=== PATIENT | female | born 1985 | race Caucasian/White ===

== ENCOUNTER 2021-11-04 23:00 | Emergency (ER) | payer OTHER ==
[~2021-11-04] VITALS: Ht 175.3 cm; Wt 83.9 kg
--- NOTE | 2021-11-04 23:20 | NUR ---
Seen and evaluated by Dr. Jackson.
[2021-11-04] MEDS ORDERED: DICYCLOMINE HCL LIQ 10 MG/5 ML UDC ONE (23:39)
[2021-11-04] MEDS ORDERED: MAG HYDROX/AL HYDROX/SIMETH 30 ML LIQUID UDC ONE (23:40)
[2021-11-04] MEDS ORDERED: PANTOPRAZOLE SODIUM 40 MG TABLET.DR PO ONE (23:40)
[2021-11-04] MEDS ORDERED: LIDOCAINE VISCUS 2% 15 ML UDC ONE (23:40)
[2021-11-04] MEDS ORDERED: ONDANSETRON ODT 4 MG TAB.RAPDIS ONE (23:41)
[2021-11-04 23:44] LABS: HEMATOCRIT 36.7 % (31.2-41.9); MEAN CORPUSCULAR HEMOGLOBIN 28.7 uug (24.7-32.8); MEAN CORPUSCULAR VOLUME 83.5 fL (75.5-95.3); PLATELET COUNT (AUTO) 261 K/uL (179-408)
[2021-11-04] MEDS: MAG HYDROX/AL HYDROX/SIMETH 30 ML LIQUID UDC PO ONE (23:44)
[2021-11-04] MEDS: ONDANSETRON ODT 4 MG TAB.RAPDIS SL ONE (23:44)
[2021-11-04] MEDS: PANTOPRAZOLE SODIUM 40 MG TABLET.DR PO ONE (23:44)
[2021-11-04] MEDS: LIDOCAINE VISCUS 2% 15 ML UDC MM ONE (23:45)
[2021-11-04] MEDS: DICYCLOMINE HCL LIQ 10 MG/5 ML UDC PO ONE (23:45)
--- NOTE | 2021-11-04 23:45 | NUR ---
Meds ordered by Dr. Jackson given and taken by patient without problems.
[2021-11-04 23:56] LABS: CARBON DIOXIDE 29 mmol/L (21-32); CHLORIDE 105 mmol/L (98-107); CREATININE 0.8 mg/dL (0.6-1.3); GLUCOSE 92 mg/dL (74-106); POTASSIUM 3.9 mmol/L (3.5-5.1); UREA NITROGEN, BLOOD 15 mg/dL (7-18)
[2021-11-05 00:09] LABS: ALANINE AMINOTRANSFERASE 32 U/L (14-59); ALKALINE PHOSPHATASE 75 U/L (50-136); ASPARTATE AMINOTRANSFERASE 21 U/L (15-37); BILIRUBIN,DIRECT < 0.1 mg/dL (0.0-0.2); BILIRUBIN,TOTAL 0.2 mg/dL (0.2-1.0); TOTAL PROTEIN, SERUM 7.1 g/dL (6.4-8.2)
[2021-11-05] MEDS ORDERED: DICY20TA11 PO ×2 (00:09→02:45)
[2021-11-05] MEDS ORDERED: PANT40TA2 PO ×2 (00:09→02:45)
[2021-11-05] MEDS ORDERED: ONDA4TAB5 PO ×2 (00:09→02:45)
--- NOTE | 2021-11-05 00:14 | NUR ---
Patient feeling better after meds.
--- NOTE | 2021-11-05 01:24 | NUR ---
Bedside US in progress.
--- NOTE | 2021-11-05 01:40 | NUR ---
2nd Troponin drawn by [facility].
--- NOTE | 2021-11-05 02:45 | NUR ---
Dr. Jackson at bedside. DC instructions given by him.
--- NOTE | 2021-11-05 02:59 | NUR ---
Patient discharged to home in stable condition. Written and verbal after care instructions given. Patient verbalizes understanding of instructions. Stressed follow up or return to ER for worsening s/s.
[2021-11-05 03:00] VITALS: BP 127/70
== END 2021-11-05 03:00 | disposition home or self-care (01) ==
LOC: ER 23:08
DX: R07.9 Chest pain, unspecified (principal); R10.13 Epigastric pain
CPT/HCPCS: 36415; 71045; 84484; 85025; 93005; A4663; Q0162